=== PATIENT | female | born 1985 | race Caucasian/White ===

== ENCOUNTER → 2020-11-08 | Outpatient (CLI) | payer BC ==
[2015-04-08 00:30] VITALS: BP 151/95
--- NOTE | 2020-11-08 17:46 | RAD ---
EXAMINATION: MG DIGITAL BILAT DIAGNOSTIC MAMMO WITH LANCE, US EXT NON VASC LEFT History: Left axillary tail lump Comparison: None. Baseline mammogram. Technique: Bilateral digital diagnostic mammogram views were obtained. CAD was utilized. 3-D tomosyn thesis images were acquired. Spot V the left breast were obtained. Focused ultrasound of the left axi lla in the area of palpable concern was performed. Findings: MAMMOGRAM: Breast Tissue Density C : The breasts are heterogeneously dense, which may obscure small masses. There is a group of complication from the lower outer left breast at middle depth the suggestion of c entral lucency on spot modification views and are most likely skin calcifications. Other scattered be nign-appearing calcification seen bilaterally. No suspicious mass or architectural distortion in eith er breast. ULTRASOUND: Ultrasound of the left axilla in the area of palpable lump was performed. There are multiple lymph no [place] with normal morphology and fatty fuentes. The largest measures 2.8 x 1.6 x 1.0 cm. No cortical thick ening or abnormal vascularity. IMPRESSION: 1. Probably benign calcifications in the lower outer left breast. Recommend 6 month follow-up diagnos tic left breast mammogram to ensure stability. 2. No mass or suspicious lymphadenopathy in the left axilla and axillary tail. BI-RADS category 3: Probably benign. The images were reviewed with computer aided detection. Patient information is entered into the reminder system with a target due date for the next screening mammogram. Mammography is the most sensitive method for finding small breast cancers, but it does not detect the m all and is not a substitute for careful clinical examination. A negative mammogram does not negate a clinically suspicious finding and should not result in delay in biopsying a clinically suspicious a bnormality. "Our facility is accredited by the [employer] Mammography [employer]." Electronically signed by: Yolanda Diaz MD (11/08/2020 5:44 PM) [id number]
== END ==
LOC: MAMMO 12:44
PROVIDERS: ATTEND Obstetrics & Gynecology
DX: R92.2 Inconclusive mammogram (principal); N63.32 Unspecified lump in axillary tail of the left breast
CPT/HCPCS: 76881; 77066; G0279; 77062